=== PATIENT | male | born 1970 | race Asian ===

== ENCOUNTER 2019-08-28 16:34 | Emergency (ER) | payer OTHER ==
--- NOTE | 2019-08-28 18:19 | EDPHYS ---
Physician Documentation [facility] Name: Anatoly Cox Age: 49 yrs Sex: Male : 1970 Arrival Date: 08/28/2019 Time: 16:38 Bed 27 Private MD: ED Physician Severo Woods HPI: 08/27 18:12 This 49 yrs old Male presents to ER via Ambulatory with complaints of Fever, ma2 Headache. 18:12 The patient reports fever, not measured (subjective). Onset: The symptoms/episode ma2 began/occurred gradually, 1 week(s) ago. Associated signs and symptoms: Pertinent positives: Pertinent negatives: arthralgias, chills, cough, pulling at ears, myalgias, nausea, night sweats, skin rash. Severity of symptoms: At their worst the symptoms were very mild in the emergency department the symptoms are unchanged. The patient has experienced similar episodes in the past. Historical: - Allergies: 16:54 No Known Allergies; ca1 - Home Meds: 16:54 Vitamin C Oral daily [Active]; pantoprazole oral oral [Active]; ca1 - PMHx: 16:54 None; ca1 - PSHx: 16:54 None; ca1 - Immunization history:: Adult Immunizations up to date, Flu vaccine is up to date. - Social history:: Smoking status: Patient denies any tobacco usage or history of. Patient/guardian denies using alcohol, street drugs, The patient lives with family. - Family history:: not pertinent. ROS: 18:12 Constitutional: Negative for fever, chills, and weight loss. ma2 18:12 All other systems are negative. Exam: 18:12 Constitutional: This is a well developed, well nourished patient who is awake, alert, ma2 and in no acute distress. Head/Face: Normocephalic, atraumatic. Eyes: Pupils equal round and reactive to light, extra-ocular motions intact. Lids and lashes normal. Conjunctiva and sclera are non-icteric and not injected. Cornea within normal limits. Periorbital areas with no swelling, redness, or edema. ENT: Nares patent. No nasal discharge, no septal abnormalities noted. Tympanic membranes are normal and external auditory canals are clear. Oropharynx with no redness, swelling, or masses, exudates, or evidence of obstruction, uvula midline. Mucous membranes moist. Neck: Trachea midline, no thyromegaly or masses palpated, and no cervical lymphadenopathy. Supple, full range of motion without nuchal rigidity, or vertebral point tenderness. No Meningismus. Chest/axilla: Normal chest wall appearance and motion. Nontender with no deformity. No lesions are appreciated. Cardiovascular: Regular rate and rhythm with a normal S1 and S2. No gallops, murmurs, or rubs. Normal PMI, no JVD. No pulse deficits. Respiratory: Lungs have equal breath sounds bilaterally, clear to auscultation and percussion. No rales, rhonchi or wheezes noted. No increased work of breathing, no retractions or nasal flaring. Abdomen/GI: Soft, non-tender, with normal bowel sounds. No distension or tympany. No guarding or rebound. No evidence of tenderness throughout. Back: No spinal tenderness. No costovertebral tenderness. Full range of motion. Skin: Warm, dry with normal turgor. Normal color with no rashes, no lesions, and no evidence of cellulitis. MS/ Extremity: Pulses equal, no cyanosis. Neurovascular intact. Full, normal range of motion. Neuro: Awake and alert, GCS 15, oriented to person, place, time, and situation. Cranial nerves II-XII grossly intact. Motor strength 5/5 in all extremities. Sensory grossly intact. Cerebellar exam normal. Normal gait. Vital Signs: 16:51 BP 136 / 91; Pulse 95; Resp 17 S; Temp 100(O); Pulse Ox 95% on R/A; Weight 65 kg (R); ca1 Height 5 ft. 5 in. (165.10 cm) (R); Pain 0/10; 18:27 BP 153 / 98; Pulse 82; Resp 18; Temp 100; Pulse Ox 95% ; Pain 3/10; ll1 16:51 Body Mass Index 23.85 (65.00 kg, 165.10 cm) ca1 MDM: 17:42 Patient medically screened. ma2 18:12 Differential diagnosis: viral Infection, URI, bronchitis. Differential diagnosis: ma2 gastroenteritis. Data reviewed: vital signs, EMS record. Counseling: I had a detailed discussion with the patient and/or guardian regarding: the historical points, exam findings, and any diagnostic results supporting the discharge/admit diagnosis, the presence of at least one elevated blood pressure reading (>120/80) during this emergency department visit, the need for outpatient follow up. Response to treatment: the patient's symptoms have markedly improved after treatment. 08/27 17:11 Order name: Flu ca1 08/27 17:11 Order name: Strep ca1 08/27 17:34 Order name: Group A Streptococcus Rapid Sc; Complete Time: 18:02 EDMS 08/27 17:41 Order name: Influenza Screen (A ; Complete Time: 18:02 EDMS Administered Medications: No medications were administered Disposition: 08/28/19 18:13 Discharged to Home. Impression: Acute upper respiratory infection, unspecified. - Condition is Stable. - Discharge Instructions: Upper Respiratory Infection, Adult. - Prescriptions for Zithromax Z- Deshawn 250 mg Oral Tablet - take 1 tablet by ORAL route as directed for 5 days Day 1 - take two (2) tablets one time. Day 2, 3, 4 , 5 take one (1) tablet once daily.; 6 tablet. - Medication Reconciliation Form, Thank You Letter, Antibiotic Education, Prescription Opioid Use form. - Follow up: Private Physician; When: Tomorrow; Reason: Recheck today's complaints, Continuance of care. Signatures: Dispatcher [employer] EDMS Severo Woods MD MD ma2 Winnie Jerome RN RN ca1 Yohan Early RN RN ll1 Corrections: (The following items were deleted from the chart) 18:30 18:13 08/28/2019 18:13 Discharged to Home. Impression: Acute upper respiratory ll1 infection, unspecified. Condition is Stable. Forms are Medication Reconciliation Form, Thank You Letter, Antibiotic Education, Prescription Opioid Use. Follow up: Private Physician; When: Tomorrow; Reason: Recheck today's complaints, Continuance of care. ma2
--- NOTE | 2019-08-28 18:19 | ER ---
Nurse's Notes [facility] Name: Anatoly Cox Age: 49 yrs Sex: Male : 1970 Arrival Date: 08/28/2019 Time: 16:38 Bed 27 Private MD: Diagnosis: Acute upper respiratory infection, unspecified Presentation: 08/27 16:51 Chief complaint: Patient states: Fever, headache x 1 week. Denies cough, congestion, ca1 sore throat, body aches. Denies urinary s/s, abdl pain. Tylenol taken at 1545. Coronavirus screen: Patient denies fever greater than 100.4F, cough, shortness of breath, or difficulty breathing. Proceed with normal triage process. Ebola Screen: Patient negative for fever greater than or equal to 101.5 degrees Fahrenheit, and additional compatible Ebola Virus Disease symptoms Patient denies exposure to infectious person. Patient denies travel to an Ebola-affected area in the 21 days before illness onset. No symptoms or risks identified at this time. Initial Sepsis Screen: Does the patient meet any 2 criteria? No. Patient's initial sepsis screen is negative. Does the patient have a suspected source of infection? No. Patient's initial sepsis screen is negative. Risk Assessment: Do you want to hurt yourself or someone else? Patient reports no desire to harm self or others. Onset of symptoms was August 28, 2019. 16:51 Acuity: VINAY 4 ca1 16:51 Method Of Arrival: Ambulatory ca1 Triage Assessment: 18:28 Headache History: Denies prior headaches. General: Appears in no apparent distress. ll1 Behavior is calm, cooperative. Pain: Also complains of no other associated symptoms. Pain: Complains of pain in head Pain Quality of pain is described as aching, Pain began gradually, Is intermittent. Historical: - Allergies: 16:54 No Known Allergies; ca1 - Home Meds: 16:54 Vitamin C Oral daily [Active]; pantoprazole oral oral [Active]; ca1 - PMHx: 16:54 None; ca1 - PSHx: 16:54 None; ca1 - Immunization history:: Adult Immunizations up to date, Flu vaccine is up to date. - Social history:: Smoking status: Patient denies any tobacco usage or history of. Patient/guardian denies using alcohol, street drugs, The patient lives with family. - Family history:: not pertinent. Screenin:54 Abuse screen: Denies threats or abuse. Nutritional screening: No deficits noted. ll1 Tuberculosis screening: No symptoms or risk factors identified. Fall Risk None identified. Assessment: 17:52 General: Appears in no apparent distress. Behavior is calm, cooperative. Pain: ll1 Complains of pain in head Pain Quality of pain is described as aching, Pain began gradually. Neuro: No deficits noted. Reports headache + fever. Cardiovascular: No deficits noted. Respiratory: Denies cough, shortness of breath. GI: No deficits noted. Vital Signs: 16:51 BP 136 / 91; Pulse 95; Resp 17 S; Temp 100(O); Pulse Ox 95% on R/A; Weight 65 kg (R); ca1 Height 5 ft. 5 in. (165.10 cm) (R); Pain 0/10; 18:27 BP 153 / 98; Pulse 82; Resp 18; Temp 100; Pulse Ox 95% ; Pain 3/10; ll1 16:51 Body Mass Index 23.85 (65.00 kg, 165.10 cm) ca1 ED Course: 16:38 Patient arrived in ED. mr 16:53 Triage completed. ca1 16:54 Arm band placed on right wrist. ca1 17:27 Flu and/or RSV swab sent to lab. Strep swab sent to lab. ca1 17:27 Strep Sent, Flu Sent. jp3 17:42 Severo Woods MD is Attending Physician. ma2 17:52 Yohan Early, RN is Primary Nurse. ll1 17:54 Patient has correct armband on for positive identification. Bed in low position. Call ll1 light in reach. Side rails up X 1. 18:28 No provider procedures requiring assistance completed. Patient did not have IV access ll1 during this emergency room visit. Administered Medications: No medications were administered Outcome: 18:13 Discharge ordered by . ma2 18:29 Discharged to home ambulatory. ll1 18:29 Condition: good 18:29 Discharge instructions given to patient, Instructed on discharge instructions, follow up and referral plans. medication usage, Demonstrated understanding of instructions, follow-up care, medications, Prescriptions given X 1. 18:30 Patient left the ED. ll1 Signatures: Michelle Danielle mr Severo Woods MD MD ma2 Rodger Martínez jp3 Winnie Jerome, RN RN ca1 Yohan Early RN RN ll1 Corrections: (The following items were deleted from the chart) 17: 17:52 Group A Streptococcus Rapid Sc+BA.LAB.BRZ drawn and sent. jp3 jp3 17:53 17:52 Influenza Screen (A \T\ B)+BA.LAB.BRZ drawn and sent. jp3 jp3
== END 2019-08-28 18:30 | disposition home or self-care (01) ==
LOC: ER 16:34
DX: J06.9 Acute upper respiratory infection, unspecified (principal)
CPT/HCPCS: 87070; 87081; 87804; 99283

== ENCOUNTER 2019-08-29 21:37 | Emergency (ER) | payer OTHER ==
--- NOTE | 2019-08-29 21:58 | ER ---
Nurse's Notes [facility] Name: Anatoly Cox Age: 49 yrs Sex: Male : 1970 Arrival Date: 08/29/2019 Time: 21:40 Bed Waiting Private MD: Diagnosis: Fever, unspecified Presentation: 08/28 21:50 Chief complaint: Patient states: that he was seen yesterday. Has fever and headache. fc Was given antibiotics which he filled and started to take. Was told to self quarantine. Is concerned because when the Tylenol wears off the fever and headache come back. Coronavirus screen: Patient reports a subjective fever or greater than 100.4F, or cough, or shortness of breath, or difficulty breathing. Patient denies contact with known and/or suspected case of COVID-19. Ebola Screen: Patient negative for fever greater than or equal to 101.5 degrees Fahrenheit, and additional compatible Ebola Virus Disease symptoms Patient denies exposure to infectious person. Patient denies travel to an Ebola-affected area in the 21 days before illness onset. Initial Sepsis Screen: Does the patient meet any 2 criteria? HR > 90 bpm. No. Patient's initial sepsis screen is negative. Does the patient have a suspected source of infection? No. Patient's initial sepsis screen is negative. Risk Assessment: Do you want to hurt yourself or someone else? Patient reports no desire to harm self or others. Onset of symptoms was August 20, 2019. Care prior to arrival: Medication(s) given: Tylenol, last at 2100. Transition of care: patient was not received from another setting of care. 21:50 Method Of Arrival: Ambulatory fc 21:50 Acuity: VINAY 4 fc Triage Assessment: 21:54 General: Appears uncomfortable, slender, well groomed, Behavior is calm, cooperative, fc appropriate for age. Pain: Denies pain. EENT: No deficits noted. Neuro: Level of Consciousness is awake, alert, obeys commands, Oriented to person, place, time, situation, Appropriate for age. Respiratory: Breath sounds are clear bilaterally. GI: Patient currently denies cramping, diarrhea, nausea, vomiting. : No deficits noted. Derm: Skin is pink, warm \T\ dry. Musculoskeletal: Circulation, motion, and sensation intact. Capillary refill < 3 seconds, Range of motion: intact in all extremities. Historical: - Allergies: 21:54 No Known Allergies; fc - Home Meds: 21:54 Vitamin C Oral daily [Active]; pantoprazole Oral [Active]; fc - PMHx: 21:54 None; fc - PSHx: 21:54 None; fc - Immunization history:: Last tetanus immunization: up to date Flu vaccine is up to date. - Social history:: Smoking status: Patient denies any tobacco usage or history of. Patient/guardian denies using alcohol, street drugs. Screenin:56 Abuse screen: Denies threats or abuse. Nutritional screening: No deficits noted. fc Tuberculosis screening: No symptoms or risk factors identified. Fall Risk None identified. Assessment: 21:50 Reassessment: Marianne COMMUNITY DIRECTOR in to see pt in triage and examine him. Pt given complete fc discharge instructions and will go home and self quarantine. 21:58 Reassessment: See triage assessment. fc Vital Signs: 21:50 BP 141 / 93; Pulse 96; Resp 18; Temp 99.3(O); Pulse Ox 95% on R/A; Weight 65 kg (R); fc Height 5 ft. 5 in. (165.10 cm) (R); Pain 0/10; 21:50 Body Mass Index 23.85 (65.00 kg, 165.10 cm) ED Course: 21:40 Patient arrived in ED. cl3 21:49 Marianne Wren FNP-C is [facility]. kb 21:49 Fermin Sharma MD is Attending Physician. kb 21:54 Triage completed. 21:54 Arm band placed on Patient placed in an exam room, on a stretcher. 21:56 Patient has correct armband on for positive identification. Call light in reach. fc 21:56 No provider procedures requiring assistance completed. Patient did not have IV access fc during this emergency room visit. Administered Medications: No medications were administered Outcome: 21:58 Discharge ordered by . kb 21:58 Discharged to home ambulatory. fc 21:58 Condition: unchanged 21:58 Discharge instructions given to patient, family, Instructed on discharge instructions, follow up and referral plans. Use of OTC Tylenol/Motrin for pain and fever Demonstrated understanding of instructions, follow-up care, Prescriptions given X None 22:05 Patient left the ED. fc Signatures: Marianne Wren FNP-C [employer]PER[employer]-Ckb Mindy Gomez, RN RN fc Roger Early cl3
--- NOTE | 2019-08-29 21:59 | EDPHYS ---
Physician Documentation [facility] Name: Anatoly Cox Age: 49 yrs Sex: Male : 1970 Arrival Date: 08/29/2019 Time: 21:40 Bed Waiting Private MD: ED Physician Fermin Sharma HPI: 08/28 22:05 This 49 yrs old Male presents to ER via Ambulatory with complaints of Fever. kb 22:05 The patient reports fever, with an emergency department temperature of 99.3 degrees kb Fahrenheit. Modifying factors: there are no obvious modifying factors. The patient has not experienced similar symptoms in the past. The patient has been recently seen at the [facility] Emergency Department, yesterday, for similar complaints labs were performed. 22:06 Onset: The symptoms/episode began/occurred 10 day(s) ago. Associated signs and kb symptoms: Pertinent positives: chills, headache, Pertinent negatives: cough, shortness of breath, sore throat. Severity of symptoms: At their worst the symptoms were moderate in the emergency department the symptoms are unchanged. Pt reports headache, fever and chills since August 20, 2019. Denies cough, shortness of breath, sore throat. Was seen yesterday and tested negative for flu and strep. Told to self quarantine at home. . Historical: - Allergies: 21:54 No Known Allergies; fc - Home Meds: 21:54 Vitamin C Oral daily [Active]; pantoprazole Oral [Active]; fc - PMHx: 21:54 None; fc - PSHx: 21:54 None; fc - Immunization history:: Last tetanus immunization: up to date Flu vaccine is up to date. - Social history:: Smoking status: Patient denies any tobacco usage or history of. Patient/guardian denies using alcohol, street drugs. ROS: 21:59 ENT: Negative for injury, pain, and discharge, Neck: Negative for injury, pain, and kb swelling, Cardiovascular: Negative for chest pain, palpitations, and edema, Respiratory: Negative for shortness of breath, cough, wheezing, and pleuritic chest pain, Abdomen/GI: Negative for abdominal pain, nausea, vomiting, diarrhea, and constipation, MS/Extremity: Negative for injury and deformity, Skin: Negative for injury, rash, and discoloration, Neuro: Negative for headache, weakness, numbness, tingling, and seizure. 21:59 Constitutional: Positive for chills, fever, Negative for body aches, fatigue, malaise, poor PO intake, weight loss. Exam: 21:59 Constitutional: This is a well developed, well nourished patient who is awake, alert, kb and in no acute distress. Head/Face: Normocephalic, atraumatic. ENT: Nares patent. No nasal discharge, no septal abnormalities noted. Tympanic membranes are normal and external auditory canals are clear. Oropharynx with no redness, swelling, or masses, exudates, or evidence of obstruction, uvula midline. Mucous membranes moist. Neck: Trachea midline, no thyromegaly or masses palpated, and no cervical lymphadenopathy. Supple, full range of motion without nuchal rigidity, or vertebral point tenderness. No Meningismus. Chest/axilla: Normal chest wall appearance and motion. Nontender with no deformity. No lesions are appreciated. Cardiovascular: Regular rate and rhythm with a normal S1 and S2. No gallops, murmurs, or rubs. Normal PMI, no JVD. No pulse deficits. Respiratory: Lungs have equal breath sounds bilaterally, clear to auscultation and percussion. No rales, rhonchi or wheezes noted. No increased work of breathing, no retractions or nasal flaring. Abdomen/GI: Soft, non-tender, with normal bowel sounds. No distension or tympany. No guarding or rebound. No evidence of tenderness throughout. Skin: Warm, dry with normal turgor. Normal color with no rashes, no lesions, and no evidence of cellulitis. MS/ Extremity: Pulses equal, no cyanosis. Neurovascular intact. Full, normal range of motion. Neuro: Awake and alert, GCS 15, oriented to person, place, time, and situation. Cranial nerves II-XII grossly intact. Motor strength 5/5 in all extremities. Sensory grossly intact. Cerebellar exam normal. Normal gait. Vital Signs: 21:50 BP 141 / 93; Pulse 96; Resp 18; Temp 99.3(O); Pulse Ox 95% on R/A; Weight 65 kg (R); fc Height 5 ft. 5 in. (165.10 cm) (R); Pain 0/10; 21:50 Body Mass Index 23.85 (65.00 kg, 165.10 cm) fc MDM: 21:58 Patient medically screened. kb 21:58 Data reviewed: vital signs, nurses notes. Data interpreted: Pulse oximetry: on room air kb is 96 %. Interpretation: normal. Counseling: I had a detailed discussion with the patient and/or guardian regarding: the historical points, exam findings, and any diagnostic results supporting the discharge/admit diagnosis, the need for outpatient follow up, a family practitioner, to return to the emergency department if symptoms worsen or persist or if there are any questions or concerns that arise at home. Administered Medications: No medications were administered Disposition: 08/29 07:32 Co-signature as Attending Physician, Fermin Sharma MD I agree with the assessment and [facility] plan of care. Disposition: 08/29/19 21:58 Discharged to Home. Impression: Fever, unspecified. - Condition is Stable. - Discharge Instructions: Viral Respiratory Infection, [id number], Fever, Adult, [id number]. - Medication Reconciliation Form, Thank You Letter, Antibiotic Education, Prescription Opioid Use form. - Follow up: Emergency Department; When: As needed; Reason: Worsening of condition. Follow up: Private Physician; When: 2 - 3 days; Reason: Recheck today's complaints, Continuance of care, Re-evaluation by your physician. Signatures: Marianne Wren, HÉCTOR-Stephanie CONTEP-Fermin Braswell MD MD cha Chretien, Felicia, RN RN fc Corrections: (The following items were deleted from the chart) 08/28 22:05 21:58 08/29/2019 21:58 Discharged to Home. Impression: Fever, unspecified. Condition is fc Stable. Forms are Medication Reconciliation Form, Thank You Letter, Antibiotic Education, Prescription Opioid Use. Follow up: Emergency Department; When: As needed; Reason: Worsening of condition. Follow up: Private Physician; When: 2 - 3 days; Reason: Recheck today's complaints, Continuance of care, Re-evaluation by your physician. kb
[2019-08-29 22:26] VITALS: BP 141/93; TEMP 99.3; O2SAT 95
== END 2019-08-29 22:05 | disposition home or self-care (01) ==
LOC: ER 21:37
DX: R50.9 Fever, unspecified (principal)
CPT/HCPCS: 99282